=== PATIENT | male | born 1950 | race Caucasian/White ===

== ENCOUNTER 2019-12-14 10:22 | Emergency (ER) | payer OTHER ==
[2019-12-14 10:42] VITALS: BP 122/76; PULSE 75; TEMP 97.9; BMI 36.6
[2019-12-14] MEDS ORDERED: KETOROLAC TROMETHAMINE 30 MG/1 ML VIAL IM ONE (10:56)
--- NOTE | 2019-12-14 11:01 | PDOC ---
History of Present Illness - General Chief Complaint: Pain Stated Complaint: LEG PAIN Time Seen by Provider: 12/14/19 10:52 History Source: Patient Exam Limitations: No Limitations - History of Present Illness Initial Comments: 12/14/19 10:56 Patient is a 69-year-old male who presents to the ED with complaint of left lumbar back pain with left lower extremity radiculopathy that started 3 days ago. He states he bent down to pick something up when he felt sharp pain in his left lumbar back. He states the pain began to radiate down his left lower extremity. He states the pain is causing him difficulty with walking. 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 He states he takes 220 mg of methadone daily. He denies any fevers or chills. He denies any urinary or fecal incontinence or retention. He denies any numbness or tingling to his extremities or his saddle region. 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 He has not taken anything for his pain. The patient states he also has a history of liver cirrhosis. He denies any dysuria or hematuria. Past History - Past Medical History Allergies/Adverse Reactions: Allergies Allergy/AdvReac Type Severity Reaction Status Date / Time No Known Allergies Allergy Verified 12/14/19 10:34 Home Medications: Ambulatory Orders Bumetanide 1 mg PO DAILY 12/14/19 Ibuprofen 400 mg PO PRN 12/14/19 Methylprednisolone [Medrol Dose Luis Felipe] 4 mg PO ASDIR #21 tablet 12/14/19 COPD: No Liver Disease: Yes Other medical history: arthritis - Psycho Social/Smoking Cessation Hx Smoking History: Former smoker Have you smoked in the past 12 months: No Information on smoking cessation initiated: No Review of Systems - Review of Systems Comments:: 12/14/19 10:57 - Review of Systems Able to Perform ROS?: Yes Constitutional: No: Fever, Chills, Loss of Appetite, Night Sweats, Weakness HEENTM: No: Eye Pain, Vision changes, Ear Pain, Throat Pain, Throat Swelling, Mouth Pain, Difficulty Swallowing Respiratory: No: Cough, Shortness of Breath, Wheezing, Sputum Production Cardiac (ROS): No: Chest Pain, Chest Tightness, Palpitations, Irregular Heart Beat, Edema ABD/GI: No: Nausea, Vomiting, Abdominal Pain, Diarrhea : No Dysuria, No Hematuria, No Frequency, No Urgency Musculoskeletal: No: Muscle Pain, Joint Pain, Muscle Weakness, Neck Pain; left lumbar back pain with radiculopathy Integumentary: No: Lesions, Rash Neurological: No: Headache, Numbness, Tingling, Weakness, Speech Difficulties *Physical Exam - Vital Signs Last Vital Signs Temp Pulse Resp BP Pulse Ox 97.9 F 75 18 122/76 98 12/14/19 10:31 12/14/19 10:31 12/14/19 10:31 12/14/19 10:31 12/14/19 10:31 - Physical Exam 12/14/19 10:58 - Physical Exam General Appearance: Nourished, Appropriately Dressed, No Distress Neck: Supple, No Lymphadenopathy (R), No Lymphadenopathy (L), No Rigidity, No Decreased range of motion Respiratory/Chest: Lungs Clear, Normal Breath Sounds. No Respiratory Distress, No Accessory Muscle Use Cardiovascular: Regular Rhythm, Regular Rate, S1, S2 Gastrointestinal/Abdominal: Normal Bowel Sounds, Soft. Non-tender, No Guarding , No Rebound, No Rigidity Musculoskeletal: Normal Inspection. Patient is walking with a cane. He has mild left lumbar reproducible back pain to palpation. No midline pain to palpation. Strength 5/5 bilateral lower extremities. Sensation intact to light touch to the bilateral lower extremities. Negative straight leg raise bilaterally. No reproducible back pain with external rotation of the left hip. Mild left buttock tenderness to palpation. Extremity: Normal Capillary Refill, Normal Inspection Integumentary: Normal Color, Dry. 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 Plan: -Lumbar x-ray ordered -Toradol IM ordered -Will reassess 12/14/19 11:51 The patient has what appears to be some degenerative scoliosis with an anterolisthesis of L5 on S1. There is diffuse colonic stool appreciated. He has moderate spondylosis appreciated. The patient has been made aware that this will require follow-up with either an orthopedic spine surgeon or neurosurgeon. He does state that he has seen an orthopedic spine surgeon in the past and will follow-up with him. We will also give him referral to neurosurgery. He has been given a Toradol injection today and we will discharge him with a Medrol Dosepak which he is to start tomorrow. He understands and agrees with this treatment plan and he is stable for discharge. Discharge - Discharge Information Problems reviewed: Yes Clinical Impression/Diagnosis: Lumbar back pain with radiculopathy affecting left lower extremity Condition: Stable Disposition: HOME - Additional Discharge Information Prescriptions: Methylprednisolone [Medrol Dose Luis Felipe] 4 mg PO ASDIR #21 tablet - Follow up/Referral Referrals: ON STAFF,NOT [Primary Care Provider] - Osvaldo Timmons MD, [facility] [Staff Physician] - 1 week - Patient Discharge Instructions Patient Printed Discharge Instructions: DI for Back Pain With Sciatica Additional Instructions: Avoid any strenuous activity. Be sure to move gently to help keep your muscles warm. Continue to walk with your cane. Follow-up with your orthopedic spine surgeon for further evaluation and treatment as you may be a candidate for an epidural steroid injection. If you have trouble following up with your orthopedic spine surgeon, a neurosurgeon has been referred to you. Take the Medrol Dosepak as prescribed and start tomorrow, 12/15/2019. Return to the emergency department for worsening pain, numbness or tingling, inability to hold your stool or urine, or any other worsening symptoms. - Post Discharge Activity
[2019-12-14] MEDS ORDERED: KETOROLAC TROMETHAMINE 30 MG/1 ML VIAL ONE (11:30)
== END 2019-12-14 12:10 | disposition home or self-care (01) ==
LOC: JER 10:22
PROC: 3E0233Z Introduction of Anti-inflammatory into Muscle, Percutaneous Approach (ICD-10-PCS; principal; 2019-12-14)
DX: M54.16 Radiculopathy, lumbar region (principal); M12.9 Arthropathy, unspecified; K76.9 Liver disease, unspecified; Z99.89 Dependence on other enabling machines and devices
CPT/HCPCS: 72100-TC-FY; 99284-25